=== PATIENT | female | born 1960 | race Two or more races ===

== ENCOUNTER 2022-12-29 06:22 | Day surgery (SDC) | payer OTHER ==
[2022-12-25 18:11] VITALS: BMI 23.8
[2022-12-29] MEDS ORDERED: LIDOCAINE HCL 1%, 10 MG/ML (20ML VIAL) ONE (07:12)
[2022-12-29] MEDS ORDERED: MIDAZOLAM HCL 2 MG/2 ML SINGLE DOSE VIAL ONE (07:37)
[2022-12-29] MEDS ORDERED: oxyCODONE HCL 5 MG TABLET PO PRN (08:16)
[2022-12-29] MEDS ORDERED: FENTANYL CITRATE/PF 50 MCG/ML VIAL ONE (08:40)
[2022-12-29] MEDS ORDERED: ONDANSETRON 4 MG/2 ML VIAL ONE (08:54)
[2022-12-29] MEDS ORDERED: ceFAZolin SODIUM 1 GM VIAL ONE (09:20)
[2022-12-29] MEDS ORDERED: SUCCINYLCHOLINE CHLORIDE 200 MG/10 ML SYRINGE ONE (09:20)
[2022-12-29 09:47] VITALS: TEMP 97.8
[2022-12-29 09:50] VITALS: BP 130/72; PULSE 56; RESP 17
[2022-12-29] MEDS ORDERED: ONDANSETRON 4 MG/2 ML VIAL IVPUSH PRN (09:52)
== END 2022-12-29 09:52 | disposition home or self-care (01) ==
LOC: FASU 06:22
PROVIDERS: ATTEND Orthopaedic Surgery
PROC: 0LN70ZZ Release Right Hand Tendon, Open Approach (ICD-10-PCS; principal; 2022-12-29 07:58)
DX: M65.311 Trigger thumb, right thumb (principal)
CPT/HCPCS: 82962; 94760